=== PATIENT | male | born 1990 | race African-American/Black ===

== ENCOUNTER 2024-01-24 10:29 | Inpatient (IN) | payer OTHER ==
[2024-01-24 10:53] VITALS: BMI 20.6
[2024-01-24] MEDS ORDERED: POLYETHYLENE GLYCOL (HEALTHYLAX) 3350 17 GM PACKET PO PRN (11:18)
[2024-01-24] MEDS ORDERED: ACETAMINOPHEN 325 MG TABLET (FP) PO PRN (11:18)
[2024-01-24] MEDS ORDERED: LOPERAMIDE HCL 2 MG CAPSULE PO PRN (11:18)
[2024-01-24] MEDS ORDERED: BISMUTH SUBSALICYLATE 262 MG/15 ML BTL PO PRN (11:18)
[2024-01-24] MEDS ORDERED: MAG HYDROX/AL HYDROX/SIMETH 30 ML UNIT-DOSE CUP PO PRN (11:18)
[2024-01-24] MEDS ORDERED: NICOTINE POLACRILEX 2 MG GUM BUC PRN (11:18)
[2024-01-24] MEDS ORDERED: ONDANSETRON *ODT* 4 MG TABLET SL PRN (11:18)
[2024-01-24] MEDS ORDERED: BENZOCAINE/MENTHOL (CHLORASEPTIC ) LOZENGE MM PRN (11:18)
[2024-01-24] MEDS ORDERED: IBUPROFEN 600 MG TABLET (FP) PO PRN (11:18)
[2024-01-24] MEDS ORDERED: DICYCLOMINE HCL 10 MG CAPSULE PO PRN (11:18)
[2024-01-24] MEDS ORDERED: MAGNESIUM HYDROX 2400MG/30ML ORAL SUSPENSION 30 ML CUP PO PRN (11:18)
[2024-01-24] MEDS ORDERED: chlordiazePOXIDE HCL 25 MG CAPSULE PO PRN (11:20)
[2024-01-24] MEDS ORDERED: chlordiazePOXIDE HCL 25 MG CAPSULE ONE (12:10)
[2024-01-24] MEDS: chlordiazePOXIDE HCL 25 MG CAPSULE PO SCH (12:13)
[2024-01-24] MEDS: levETIRAcetam 250 MG TABLET PO SCH (13:47)
[2024-01-24] MEDS: BUPRENORPHINE/NALOXONE 8 MG/2 MG FILM PACKET SL SCH (13:47)
[2024-01-24] MEDS: BENZONATATE 200 MG CAPSULE PO PRN (17:17)
[2024-01-24] MEDS: NICOTINE POLACRILEX 2 MG LOZENGE BC PRN (18:06)
[2024-01-24] MEDS: FAMOTIDINE 20 MG TABLET PO SCH (22:15)
[2024-01-24] MEDS: THIAMINE 100 MG TABLET PO SCH (22:15)
[2024-01-24] MEDS: MELATONIN 5 MG TABLETS PO SCH (22:16)
[2024-01-24] MEDS: IBUPROFEN 400 MG TABLET (FP) PO PRN (22:19)
[2024-01-24] MEDS: METHOCARBAMOL 500 MG TABLET PO PRN (22:19)
[2024-01-25] MEDS ORDERED: ESCITALOPRAM OXALATE 10 MG TABLET ONE (09:10)
[2024-01-25] MEDS: ESCITALOPRAM OXALATE 20 MG TABLET PO SCH (09:35)
[2024-01-25] MEDS: hydrOXYzine PAMOATE 25 MG CAPSULE (FP) PO PRN (09:35)
[2024-01-25] MEDS: PRENATAL VITAMINS W/ FOLIC ACID TABLET (FP) PO SCH (09:36)
[2024-01-25 11:13] LABS: HEMOGLOBIN 13.7 GM/dL (11.7-16.9); MCH 29.7 pg (25.7-33.7); MEAN CELL VOLUME 93.1 fl (80-96); MEAN PLT VOLUME 8.6 fl (7.5-11.1); PLATELET COUNT 283 10^3/uL (134-434); RBC 4.61 M/mm3 (4.00-5.60); RDW 14.6 % (11.9-15.9); WHITE BLOOD COUNT 6.5 K/mm3 (4.0-10.0)
[2024-01-25 11:14] LABS: POTASSIUM 4.3 mmol/L (3.5-5.1)
[2024-01-25 11:18] LABS: ALBUMIN 3.5 g/dl (3.4-5.0); BLOOD UREA NITROGEN 13.4 mg/dL (7-18)
[2024-01-25 11:22] LABS: BILIRUBIN,TOTAL 0.2 mg/dL (0.2-1); TOT PROT 6.8 g/dl (6.4-8.2)
[2024-01-25] MEDS: SUVOREXANT 10 MG TABLET PO PRN (22:12)
[2024-01-25] MEDS: guaiFENesin 600 MG TABLET.ER (FP) PO PRN (23:52)
[2024-01-25] MEDS: P-EPHED 60MG/TRIPROLIDI 2.5MG TABLET PO PRN (23:52)
[2024-01-26] MEDS: chlordiazePOXIDE HCL 25 MG CAPSULE PO SCH (05:43)
[2024-01-26 08:40] VITALS: BP 135/85; PULSE 107; RESP 18; TEMP 97.8
[2024-01-26] MEDS ORDERED: ESCITALOPRAM OXALATE 10 MG TABLET ONE (09:41)
[2024-01-27] MEDS ORDERED: chlordiazePOXIDE HCL 10 MG CAPSULE PO PRN
[2024-01-27] MEDS ORDERED: chlordiazePOXIDE HCL 10 MG CAPSULE PO SCH (05:00)
[2024-01-28] MEDS ORDERED: chlordiazePOXIDE HCL 10 MG CAPSULE PO SCH (05:00)
[2024-01-29] MEDS ORDERED: chlordiazePOXIDE HCL 10 MG CAPSULE PO ONE (05:00)
== END 2024-01-26 20:40 | disposition short-term general hospital (02) | DRG 773 ==
LOC: YASAS 10:29 → Y3N 12:10 → Y6N 12:32
PROVIDERS: ADMIT Allergy & Immunology; ATTEND Surgery
PROC: HZ2ZZZZ Detoxification Services for Substance Abuse Treatment (ICD-10-PCS; principal; 2024-01-24)
DX: F10.230 Alcohol dependence with withdrawal, uncomplicated (principal); F11.20 Opioid dependence, uncomplicated; F14.20 Cocaine dependence, uncomplicated; F17.210 Nicotine dependence, cigarettes, uncomplicated; F19.282 Other psychoactive substance dependence with psychoactive substance-induced sleep disorder; F19.280 Other psychoactive substance dependence with psychoactive substance-induced anxiety disorder; F43.10 Post-traumatic stress disorder, unspecified; G40.909 Epilepsy, unspecified, not intractable, without status epilepticus; K21.9 Gastro-esophageal reflux disease without esophagitis; R26.89 Other abnormalities of gait and mobility; Z99.89 Dependence on other enabling machines and devices; Z62.810 Personal history of physical and sexual abuse in childhood
CPT/HCPCS: 0241U-QW; 36415; 70450-TC; 80053; 80305; 80307; 82962; 85027; 86780; 93005; 93010

== ENCOUNTER 2024-01-26 10:42 | Inpatient (IN) | payer OTHER ==
[2024-01-26 10:57] VITALS: BMI 22.6
[2024-01-26] MEDS: ACETAMINOPHEN 1000 MG/100 ML BAG IVPB ONE (11:20)
[2024-01-26] MEDS ORDERED: VANCOMYCIN 1,000 MG in DEXTROSE 5%-WATER - 250 ML IVPB ONE (11:23)
[2024-01-26] MEDS ORDERED: ACETAMINOPHEN INJECTION 100 ML ONE (11:26)
[2024-01-26] MEDS ORDERED: VANCOMYCIN 1 GM PREMIX (F) 1 GM/200 ML BAG ONE (11:27)
[2024-01-26 11:31] LABS: VENOUS BASE EXCESS 2.3 mmol/L (-2-2); VENOUS PCO2 44.3 mmHg (38-52); VENOUS PH 7.409 (7.310-7.410)
[2024-01-26 11:34] LABS: BASO % 0.4 % (0-2.0); EOS % 1.1 % (0-4.5); HEMATOCRIT 41.6 % (35.4-49); HEMOGLOBIN 13.5 GM/dL (11.7-16.9); LYMPH % 12.4 % (8-40); MCH 29.4 pg (25.7-33.7); MCHC 32.3 g/dl (32.0-35.9); MEAN CELL VOLUME 90.8 fl (80-96); MEAN PLT VOLUME 7.7 fl (7.5-11.1); NEUT % 76.1 % (42.8-82.8); PLATELET COUNT 253 10^3/uL (134-434); RBC 4.58 M/mm3 (4.00-5.60); RDW 14.7 % (11.9-15.9); WHITE BLOOD COUNT 15.5 K/mm3 (4.0-10.0)
[2024-01-26] MEDS ORDERED: cefTRIAXone SODIUM 1 GM VIAL ONE (11:36)
[2024-01-26 11:41] LABS: INR 1.13 (0.83-1.09); PROTHROMBIN TIME (PATIENT) 12.7 SEC (9.7-13.0)
[2024-01-26 11:43] LABS: ACTIVATED PTT 32.9 SECONDS (25.2-36.5)
[2024-01-26] MEDS: SODIUM CHLORIDE 1,905 ML IV ONE (11:50)
[2024-01-26] MEDS ORDERED: EPINEPHrine/PF 1 MG/1 ML (1:1,000) AMPULE ONE (11:54)
[2024-01-26] MEDS: CEFTRIAXONE 2 GM-D5W BAG 2 GM/50 ML BAG IVPB ONE (11:56)
[2024-01-26 12:01] LABS: POTASSIUM 3.8 mmol/L (3.5-5.1)
[2024-01-26 12:02] LABS: CALCIUM 8.9 mg/dL (8.5-10.1)
[2024-01-26 12:03] LABS: ALBUMIN 3.4 g/dl (3.4-5.0); BLOOD UREA NITROGEN 7.4 mg/dL (7-18)
[2024-01-26 12:07] LABS: CREATININE 0.7 mg/dL (0.55-1.3)
[2024-01-26 12:08] LABS: BILIRUBIN,TOTAL 0.2 mg/dL (0.2-1)
[2024-01-26] MEDS: VANCOMYCIN 1 GM PREMIX (F) 1 GM/200 ML BAG IVPB ONE (12:35)
[2024-01-26 13:25] LABS: PH,URINE 6.5 (5.0-8.0); URINE APPEARANCE CLOUDY; URINE BILIRUBIN NEGATIVE (NEGATIVE); URINE COLOR YELLOW; URINE GLUCOSE (UA) NEGATIVE (NEGATIVE); URINE KETONE NEGATIVE (NEGATIVE); URINE LEUK ESTERASE NEGATIVE (NEGATIVE); URINE NITRITE NEGATIVE (NEGATIVE); URINE PROTEIN NEGATIVE (NEGATIVE); URINE UROBILINOGEN 0.2 mg/dL (0.2-1.0)
[2024-01-26 14:29] LABS: HIV INTERPRETATION NEGATIVE (NEGATIVE)
[2024-01-26] MEDS: EPINEPHrine 1:1,000 0.3 MG/0.3 ML SYR IM ONE (14:56)
[2024-01-26] MEDS: CIPROFLOXACIN 400 MG/D5W 400 MG/200 ML IVPB IVPB ONE (15:11)
[2024-01-26] MEDS ORDERED: CEFEPIME HCL/D5W 1 GM/50 ML BAG IVPB ONE (17:22)
[2024-01-26] MEDS ORDERED: CEFEPIME HCL/D5W 2 GM/50 ML BAG IVPB ONE (17:24)
[2024-01-26] MEDS: CEFEPIME HCL/D5W 2 GM/50 ML PREMIX IVPB SCH (17:37)
[2024-01-26 18:04] LABS: COCAINE, UR NEGATIVE (NEGATIVE); METHADONE, UR NEGATIVE (NEGATIVE); OPIATES, URI NEGATIVE (NEGATIVE); PHENCYCLIDINE,URINE NEGATIVE (NEGATIVE)
[2024-01-26 18:27] LABS: URINE AMPHETAMINES NEGATIVE (NEGATIVE); URINE BARBITURATES NEGATIVE (NEGATIVE); URINE BENZODIAZEPINES POSITIVE (NEGATIVE)
[2024-01-26 18:44] LABS: ALLENS TEST POSITIVE; ARTERIAL BLD GAS O2 SATURATION 95.7 % (95-98); ARTERIAL BLOOD GAS BASE EXCESS 2.5 mmol/L (-2-2); ARTERIAL BLOOD GAS PO2 83.4 mmHg (80-100); ARTERIAL BLOOD GAS pH 7.362 (7.350-7.450)
[2024-01-26] MEDS: VANCOMYCIN/WATER FOR INJ (PEG) 1,000 MG/200 ML BAG IVPB SCH (21:00)
[2024-01-26] MEDS ORDERED: levETIRAcetam 250 MG TABLET PO SCH (22:00)
[2024-01-26] MEDS ORDERED: DICLOFENAC SODIUM 75 MG TABLET.DR PO SCH (22:00)
[2024-01-26] MEDS ORDERED: PREGABALIN 50 MG CAPSULE PO SCH (22:00)
[2024-01-26] MEDS: PREGABALIN 50 MG CAPSULE PO SCH (22:44)
[2024-01-26] MEDS: FAMOTIDINE 20 MG TABLET PO SCH (22:44)
[2024-01-26] MEDS: DICLOFENAC SODIUM 75 MG TABLET.DR PO SCH (22:45)
[2024-01-26] MEDS: levETIRAcetam 500 MG/5 ML INJECTION VIAL IVPB SCH (23:00)
[2024-01-27] MEDS: BUPRENORPHINE/NALOXONE 4 MG/1 MG FILM PACKET SL ONE (00:36)
[2024-01-27 08:00] LABS: POTASSIUM 4.3 mmol/L (3.5-5.1)
[2024-01-27 08:05] LABS: ALBUMIN 2.9 g/dl (3.4-5.0); BLOOD UREA NITROGEN 10.3 mg/dL (7-18); CALCIUM 8.5 mg/dL (8.5-10.1); MAGNESIUM 1.9 mg/dL (1.8-2.4)
[2024-01-27 08:08] LABS: CREATININE 0.7 mg/dL (0.55-1.3); PHOSPHOROUS 3.2 mg/dL (2.5-4.9)
[2024-01-27 08:09] LABS: BILIRUBIN,TOTAL 0.1 mg/dL (0.2-1); TOT PROT 6.2 g/dl (6.4-8.2)
[2024-01-27 08:15] LABS: HEMATOCRIT 42.2 % (35.4-49); HEMOGLOBIN 13.5 GM/dL (11.7-16.9); MCH 29.5 pg (25.7-33.7); MCHC 31.9 g/dl (32.0-35.9); MEAN CELL VOLUME 92.5 fl (80-96); MEAN PLT VOLUME 8.2 fl (7.5-11.1); RBC 4.56 M/mm3 (4.00-5.60); RDW 14.9 % (11.9-15.9)
[2024-01-27 08:17] LABS: PLATELET COUNT 226 10^3/uL (134-434)
[2024-01-27] MEDS: ENOXAPARIN NA (PORCINE) 40 MG/0.4 ML DISP.SYRIN SQ SCH (09:21)
[2024-01-27] MEDS: BUPRENORPHINE/NALOXONE 8 MG/2 MG FILM PACKET SL SCH (11:28)
[2024-01-27] MEDS: ESCITALOPRAM OXALATE 20 MG TABLET PO SCH (17:10)
[2024-01-27] MEDS: CEFTRIAXONE 2 GM-D5W BAG 2 GM/50 ML BAG IVPB SCH (18:07)
[2024-01-28] MEDS: hydrOXYzine PAMOATE 25 MG CAPSULE (FP) PO PRN (04:26)
[2024-01-28] MEDS ORDERED: LORazepam 2 MG TABLET PO ONE (04:49)
[2024-01-28 06:52] LABS: BASO % 0.4 % (0-2.0); EOS % 8.3 % (0-4.5); HEMATOCRIT 39.4 % (35.4-49); HEMOGLOBIN 12.6 GM/dL (11.7-16.9); LYMPH % 18.8 % (8-40); MCH 29.3 pg (25.7-33.7); MEAN CELL VOLUME 91.5 fl (80-96); MONO % 9.9 % (3.8-10.2); NEUT % 62.6 % (42.8-82.8); PLATELET COUNT 264 10^3/uL (134-434); RBC 4.31 M/mm3 (4.00-5.60); RDW 14.7 % (11.9-15.9); WHITE BLOOD COUNT 8.5 K/mm3 (4.0-10.0)
[2024-01-28 07:09] LABS: POTASSIUM 4.5 mmol/L (3.5-5.1)
[2024-01-28 07:12] LABS: CALCIUM 8.5 mg/dL (8.5-10.1); MAGNESIUM 1.5 mg/dL (1.8-2.4)
[2024-01-28 07:13] LABS: ALBUMIN 2.8 g/dl (3.4-5.0)
[2024-01-28 07:15] LABS: CREATININE 0.6 mg/dL (0.55-1.3)
[2024-01-28 07:16] LABS: PHOSPHOROUS 3.1 mg/dL (2.5-4.9)
[2024-01-28 07:17] LABS: BILIRUBIN,TOTAL 0.2 mg/dL (0.2-1); TOT PROT 6.1 g/dl (6.4-8.2)
[2024-01-28] MEDS: levETIRAcetam 500 MG/5 ML INJECTION VIAL IVPB SCH (10:10)
[2024-01-28] MEDS: MAGNESIUM 2GM/50ML STERILE WATER IVPB IVPB SCH (10:18)
[2024-01-28] MEDS: VANCOMYCIN 1,000 MG in DEXTROSE 5%-WATER - 250 ML IVPB SCH (10:44)
[2024-01-28] MEDS: CEFEPIME HCL 2 GM VIAL (RESTRICTED TO ID) IVPB SCH (10:44)
[2024-01-28] MEDS ORDERED: MAGNESIUM SULF 50% (8.12 MEQ/2 ML-1 GM VIAL) IVPB SCH (16:31)
[2024-01-28] MEDS: levETIRAcetam 500 MG TABLET (FP) PO ONE (23:11)
[2024-01-29 06:09] VITALS: RESP 17
[2024-01-29 08:06] LABS: HEMOGLOBIN 12.4 GM/dL (11.7-16.9); MCHC 32.6 g/dl (32.0-35.9); MEAN CELL VOLUME 92.1 fl (80-96); MEAN PLT VOLUME 8.1 fl (7.5-11.1); PLATELET COUNT 299 10^3/uL (134-434); RBC 4.13 M/mm3 (4.00-5.60); WHITE BLOOD COUNT 5.8 K/mm3 (4.0-10.0)
[2024-01-29 08:38] LABS: POTASSIUM 4.3 mmol/L (3.5-5.1)
[2024-01-29 08:49] LABS: ALBUMIN 2.6 g/dl (3.4-5.0); BLOOD UREA NITROGEN 10.2 mg/dL (7-18); CALCIUM 8.4 mg/dL (8.5-10.1); MAGNESIUM 1.9 mg/dL (1.8-2.4)
[2024-01-29 08:53] LABS: BILIRUBIN,TOTAL 0.2 mg/dL (0.2-1); CREATININE 0.6 mg/dL (0.55-1.3); TOT PROT 5.9 g/dl (6.4-8.2)
[2024-01-29] MEDS: levETIRAcetam 500 MG TABLET (FP) PO SCH (10:39)
[2024-01-29 12:15] VITALS: BP 104/62; PULSE 70; TEMP 97.3
== END 2024-01-29 11:56 | disposition other institution (70) | DRG 720 ==
LOC: JER 10:42 → JERBED 13:25 → J4W 19:25
PROVIDERS: ADMIT Student in an Organized Health Care Education/Training Program; ATTEND Psychiatry & Neurology Pain Medicine
DX: A41.9 Sepsis, unspecified organism (principal); G93.41 Metabolic encephalopathy; G62.9 Polyneuropathy, unspecified; J18.9 Pneumonia, unspecified organism; F10.10 Alcohol abuse, uncomplicated; G40.909 Epilepsy, unspecified, not intractable, without status epilepticus; F14.10 Cocaine abuse, uncomplicated; F17.210 Nicotine dependence, cigarettes, uncomplicated
CPT/HCPCS: 0241U-QW; 36415; 36600; 70450-TC; 71045-TC-FY; 71250-TC; 72125-TC; 80053; 80177; 80307; 81003; 82550; 82803; 83605; 83735; 84100; 84484; 85025; 85027; 85610; 85730; 86803; 86850; 86900; 86901; 87040; 87081; 87086; 87389; 87522; 87899; 93005; 93010; 93306-TC; 99291; J0131

== ENCOUNTER 2024-01-29 12:25 | Inpatient (IN) | payer OTHER ==
[2024-01-29 15:03] VITALS: BMI 22.4
[2024-01-29] MEDS ORDERED: MAG HYDROX/AL HYDROX/SIMETH 30 ML UNIT-DOSE CUP PO PRN (15:35)
[2024-01-29] MEDS ORDERED: hydrOXYzine PAMOATE 25 MG CAPSULE (FP) PO PRN (15:35)
[2024-01-29] MEDS ORDERED: LOPERAMIDE HCL 2 MG CAPSULE PO PRN (15:35)
[2024-01-29] MEDS ORDERED: BENZONATATE 200 MG CAPSULE PO PRN (15:35)
[2024-01-29] MEDS ORDERED: POLYETHYLENE GLYCOL (HEALTHYLAX) 3350 17 GM PACKET PO PRN (15:35)
[2024-01-29] MEDS ORDERED: MAGNESIUM HYDROX 2400MG/30ML ORAL SUSPENSION 30 ML CUP PO PRN (15:35)
[2024-01-29] MEDS ORDERED: guaiFENesin 600 MG TABLET.ER (FP) PO PRN (15:35)
[2024-01-29] MEDS ORDERED: NALOXONE (NARCAN) HCL 4 MG/0.1 ML SPRAY NS PRN (15:35)
[2024-01-29] MEDS ORDERED: BENZOCAINE/MENTHOL (CHLORASEPTIC ) LOZENGE MM PRN (15:35)
[2024-01-29] MEDS ORDERED: ACETAMINOPHEN 325 MG TABLET (FP) PO PRN (15:35)
[2024-01-29] MEDS: PREGABALIN 50 MG CAPSULE PO ONE (20:35)
[2024-01-29] MEDS: BUPRENORPHINE/NALOXONE 8 MG/2 MG FILM PACKET SL SCH (21:28)
[2024-01-29] MEDS: FAMOTIDINE 20 MG TABLET PO SCH (21:28)
[2024-01-29] MEDS: MELATONIN 5 MG TABLETS PO SCH (21:28)
[2024-01-29] MEDS: levETIRAcetam 500 MG TABLET (FP) PO SCH (21:28)
[2024-01-29] MEDS: CEFUROXIME AXETIL 500 MG TABLET PO SCH (21:28)
[2024-01-29] MEDS: THIAMINE 100 MG TABLET PO SCH (21:28)
[2024-01-30] MEDS: PRENATAL VITAMINS W/ FOLIC ACID TABLET (FP) PO SCH (10:37)
[2024-01-30] MEDS: ESCITALOPRAM OXALATE 20 MG TABLET PO SCH (10:38)
[2024-01-30] MEDS ORDERED: NICOTINE POLACRILEX 4 MG LOZENGE BC PRN (17:27)
[2024-01-30] MEDS ORDERED: hydrOXYzine PAMOATE 25 MG CAPSULE (FP) PO PRN (17:29)
[2024-01-30] MEDS: NICOTINE 21 MG/24 HOURS TOPICAL PATCH TD SCH (18:25)
[2024-01-30] MEDS: PREGABALIN 50 MG CAPSULE PO SCH (21:50)
[2024-01-30] MEDS: DICLOFENAC SODIUM 75 MG TABLET.DR PO SCH (22:53)
[2024-01-31] MEDS ORDERED: CALAMINE 8% TOPICAL LOTION 177 ML BOTTLE TP PRN (10:06)
[2024-01-31 16:55] LABS: PH,URINE 7.5 (5.0-8.0); URINE APPEARANCE CLEAR; URINE BILIRUBIN NEGATIVE (NEGATIVE); URINE COLOR YELLOW; URINE GLUCOSE (UA) NEGATIVE (NEGATIVE); URINE KETONE NEGATIVE (NEGATIVE); URINE LEUK ESTERASE NEGATIVE (NEGATIVE); URINE NITRITE NEGATIVE (NEGATIVE); URINE PROTEIN NEGATIVE (NEGATIVE); URINE UROBILINOGEN 0.2 mg/dL (0.2-1.0)
[2024-01-31] MEDS: BACLOFEN 10 MG TABLET (FP) PO SCH (21:32)
[2024-02-03] MEDS: IBUPROFEN 400 MG TABLET (FP) PO PRN (21:53)
[2024-02-04] MEDS: IBUPROFEN 600 MG TABLET (FP) PO PRN (23:02)
[2024-02-05 06:49] VITALS: RESP 16
[2024-02-06] MEDS: MIRTAZAPINE 15 MG TABLET (FP) PO SCH (21:04)
[2024-02-07] MEDS: CEFUROXIME AXETIL 500 MG TABLET PO SCH (11:00)
[2024-02-12 06:10] VITALS: BP 103/66; PULSE 65; TEMP 97.8
[2024-02-12] MEDS ORDERED: NALOXONE (NYS OPIOID OVERDOSE PROGRAM) 4 MG/0.1 ML SPRAY NS PRN (10:00)
== END 2024-02-12 09:50 | disposition home or self-care (01) | DRG 772 ==
LOC: YASAS 12:25 → Y3W 17:34
PROVIDERS: ADMIT Psychiatry & Neurology Pain Medicine; ATTEND Psychiatry & Neurology Pain Medicine
PROC: HZ42ZZZ Group Counseling for Substance Abuse Treatment, Cognitive-Behavioral (ICD-10-PCS; principal; 2024-01-29)
DX: F10.20 Alcohol dependence, uncomplicated (principal); F11.20 Opioid dependence, uncomplicated; F14.20 Cocaine dependence, uncomplicated; F17.210 Nicotine dependence, cigarettes, uncomplicated; F43.10 Post-traumatic stress disorder, unspecified; F19.982 Other psychoactive substance use, unspecified with psychoactive substance-induced sleep disorder; F19.980 Other psychoactive substance use, unspecified with psychoactive substance-induced anxiety disorder; G40.909 Epilepsy, unspecified, not intractable, without status epilepticus
CPT/HCPCS: 80305; 81003; 87811; J0475

== ENCOUNTER 2024-05-22 18:53 | Inpatient (IN) | payer OTHER ==
[2024-05-22 19:38] VITALS: BMI 20.9
[2024-05-22] MEDS ORDERED: POLYETHYLENE GLYCOL (HEALTHYLAX) 3350 17 GM PACKET PO PRN (21:43)
[2024-05-22] MEDS ORDERED: NICOTINE POLACRILEX 2 MG GUM BUC PRN (21:43)
[2024-05-22] MEDS ORDERED: NALOXONE (NARCAN) HCL 4 MG/0.1 ML SPRAY NS PRN (21:43)
[2024-05-22] MEDS ORDERED: BENZONATATE 200 MG CAPSULE PO PRN (21:43)
[2024-05-22] MEDS ORDERED: IBUPROFEN 600 MG TABLET (FP) PO PRN (21:43)
[2024-05-22] MEDS ORDERED: MAG HYDROX/AL HYDROX/SIMETH 30 ML UNIT-DOSE CUP PO PRN (21:43)
[2024-05-22] MEDS ORDERED: BISMUTH SUBSALICYLATE 524 MG/30 ML PO PRN (21:43)
[2024-05-22] MEDS ORDERED: IBUPROFEN 400 MG TABLET (FP) PO PRN (21:43)
[2024-05-22] MEDS ORDERED: BENZOCAINE/MENTHOL (CHLORASEPTIC ) LOZENGE MM PRN (21:43)
[2024-05-22] MEDS ORDERED: guaiFENesin 600 MG TABLET.ER (FP) PO PRN (21:43)
[2024-05-22] MEDS ORDERED: DICYCLOMINE HCL 10 MG CAPSULE PO PRN (21:43)
[2024-05-22] MEDS ORDERED: MAGNESIUM HYDROX 2400MG/30ML ORAL SUSPENSION 30 ML CUP PO PRN (21:43)
[2024-05-22] MEDS ORDERED: methaDONE HCL 10 MG TABLET (FOR DETOX USE ONLY) PO PRN (21:46)
[2024-05-22] MEDS ORDERED: MELATONIN 5 MG TABLETS ONE (22:40)
[2024-05-22] MEDS ORDERED: methaDONE HCL 10 MG TABLET (FOR DETOX USE ONLY) ONE (22:40)
[2024-05-22] MEDS ORDERED: levETIRAcetam 500 MG TABLET (FP) PO ONE (22:40)
[2024-05-22] MEDS: THIAMINE 100 MG TABLET PO SCH (22:43)
[2024-05-22] MEDS: MELATONIN 5 MG TABLETS PO SCH (22:43)
[2024-05-22] MEDS: levETIRAcetam 500 MG TABLET (FP) PO SCH (22:43)
[2024-05-22] MEDS: methaDONE HCL 10 MG TABLET (FOR DETOX USE ONLY) PO ONE (22:43)
[2024-05-23] MEDS ORDERED: ESCITALOPRAM OXALATE 10 MG TABLET ONE (09:38)
[2024-05-23] MEDS ORDERED: FAMOTIDINE 20 MG TABLET PO SCH (10:00)
[2024-05-23] MEDS: PRENATAL VITAMINS W/ FOLIC ACID TABLET (FP) PO SCH (10:16)
[2024-05-23] MEDS: NICOTINE 14 MG/24 HOURS TOPICAL PATCH TD SCH (10:16)
[2024-05-23] MEDS: ESCITALOPRAM OXALATE 20 MG TABLET PO SCH (10:17)
[2024-05-23] MEDS: hydrOXYzine PAMOATE 25 MG CAPSULE (FP) PO PRN (10:25)
[2024-05-23] MEDS: cloNIDine HCL 0.1 MG TABLET PO PRN (10:25)
[2024-05-23] MEDS: LOPERAMIDE HCL 2 MG CAPSULE PO PRN (10:25)
[2024-05-23] MEDS: ONDANSETRON *ODT* 4 MG TABLET SL PRN (10:25)
[2024-05-23] MEDS: DICLOFENAC SODIUM 75 MG TABLET.DR PO SCH (10:50)
[2024-05-23 11:30] LABS: HEMOGLOBIN 13.7 g/dL (13.7-17.5); MCHC 32.6 g/dl (32.3-36.5); MEAN CELL VOLUME 88.2 fl (79.0-92.2); MEAN PLT VOLUME 9.5 fl (9.4-12.4); PLATELET COUNT 337 x10^3/uL (163-337); RDW 13.8 % (12.0-15.6)
[2024-05-23 11:32] LABS: CHLORIDE 98 mmol/L (98-107); POTASSIUM 3.8 mmol/L (3.5-5.1); SODIUM 134 mmol/L (136-145)
[2024-05-23] MEDS: FAMOTIDINE 20 MG TABLET PO SCH (11:35)
[2024-05-23] MEDS: methaDONE HCL 10 MG TABLET (FOR DETOX USE ONLY) PO ONE (11:37)
[2024-05-23 11:45] LABS: CALCIUM 9.2 mg/dL (8.5-10.1)
[2024-05-23 11:46] LABS: ANION GAP 8 mmol/L (4-13); BLOOD UREA NITROGEN 7.5 mg/dL (7-18); CO2 28 mmol/L (21-32); GLUCOSE,RANDOM 94 mg/dL (74-106)
[2024-05-23 11:49] LABS: CREATININE 0.7 mg/dL (0.55-1.3); SGOT/AST 21 U/L (15-37); SGPT/ALT 16 U/L (13-61)
[2024-05-23 11:50] LABS: BILIRUBIN,TOTAL 0.6 mg/dL (0.2-1); TOT PROT 7.2 g/dl (6.4-8.2)
[2024-05-23 11:52] LABS: ALK PHOS 106 U/L (45-117)
[2024-05-23] MEDS ORDERED: methaDONE HCL 10 MG TABLET PO PRN (12:59)
[2024-05-23] MEDS: cloNIDine HCL 0.1 MG TABLET PO SCH (13:28)
[2024-05-23] MEDS: PREGABALIN 50 MG CAPSULE PO SCH ×2 (17:37→18:05)
[2024-05-23] MEDS ORDERED: lamoTRIgine 100 MG TABLET PO SCH (22:00)
[2024-05-23] MEDS: MIRTAZAPINE 15 MG TABLET (FP) PO SCH (22:28)
[2024-05-24] MEDS ORDERED: ESCITALOPRAM OXALATE 10 MG TABLET ONE (09:28)
[2024-05-24] MEDS ORDERED: methaDONE HCL 10 MG TABLET (FOR DETOX USE ONLY) PO ONE (10:00)
[2024-05-24] MEDS: methaDONE HCL 10 MG TABLET PO ONE (16:42)
[2024-05-24 18:27] LABS: PH,URINE 5.5 (5.0-8.0); URINE APPEARANCE CLEAR; URINE BILIRUBIN NEGATIVE (NEGATIVE); URINE COLOR YELLOW; URINE GLUCOSE (UA) NEGATIVE (NEGATIVE); URINE KETONE NEGATIVE (NEGATIVE); URINE LEUK ESTERASE NEGATIVE (NEGATIVE); URINE NITRITE NEGATIVE (NEGATIVE); URINE PROTEIN NEGATIVE (NEGATIVE); URINE UROBILINOGEN 0.2 mg/dL (0.2-1.0)
[2024-05-25] MEDS ORDERED: ESCITALOPRAM OXALATE 10 MG TABLET ONE (09:35)
[2024-05-25] MEDS: methaDONE 40 MG, methaDONE 10 MG PO ONE (09:39)
[2024-05-25 11:14] LABS: ABSOLUTE IMMATURE GRANULOCYTES 0.03 x10^3/uL (0.0-0.031); BASOPHILS # 0.05 x10^3/uL (0.01-0.08); EOSINOPHIL % 3.7 % (0.8-7.0); EOSINOPHILS # 0.34 x10^3/uL (0.04-0.54); HEMATOCRIT 39.5 % (40.1-51.0); HEMOGLOBIN 12.4 g/dL (13.7-17.5); MCHC 31.4 g/dl (32.3-36.5); MEAN CELL VOLUME 90.8 fl (79.0-92.2); MEAN PLT VOLUME 9.9 fl (9.4-12.4); MONOCYTE # 1.04 x10^3/uL (0.30-0.82); MONOCYTE % 11.4 % (5.3-12.2); PLATELET COUNT 295 x10^3/uL (163-337); RDW 13.5 % (12.0-15.6)
[2024-05-25] MEDS: METHOCARBAMOL 500 MG TABLET PO PRN (11:37)
[2024-05-25] MEDS: methaDONE HCL 10 MG TABLET PO ONE (11:37)
[2024-05-25] MEDS: ACETAMINOPHEN 325 MG TABLET (FP) PO PRN (16:37)
[2024-05-25] MEDS: cloNIDine HCL 0.1 MG TABLET PO PRN (16:37)
[2024-05-26] MEDS ORDERED: ESCITALOPRAM OXALATE 10 MG TABLET ONE (09:36)
[2024-05-26] MEDS ORDERED: methaDONE HCL 10 MG TABLET (FOR DETOX USE ONLY) PO ONE (10:00)
[2024-05-26] MEDS ORDERED: LORazepam 2 MG/ML SDV VIAL ONE (19:10)
[2024-05-26] MEDS: LORazepam 2 MG/ML SDV VIAL IM ONE (19:15)
[2024-05-27] MEDS: levETIRAcetam 500 MG TABLET (FP) PO ONE (01:30)
[2024-05-27] MEDS ORDERED: ESCITALOPRAM OXALATE 10 MG TABLET ONE (09:29)
[2024-05-27] MEDS: methaDONE 40 MG, methaDONE 20 MG PO ONE (09:33)
[2024-05-27] MEDS: diazePAM 5 MG TABLET PO PRN (13:27)
[2024-05-27] MEDS: TRIMETHOBENZAMIDE HCL 200MG/2ML INJ IM PRN (16:00)
[2024-05-27] MEDS: levETIRAcetam 500 MG TABLET (FP) PO SCH (23:25)
[2024-05-28] MEDS: MIRTAZAPINE 15 MG TABLET (FP) PO ONE (01:07)
[2024-05-28] MEDS: levETIRAcetam 500 MG TABLET (FP) PO ONE (01:07)
[2024-05-28] MEDS: PREGABALIN 50 MG CAPSULE PO ONE (01:08)
[2024-05-28 06:32] VITALS: RESP 16
[2024-05-28] MEDS ORDERED: methaDONE HCL 40 MG DISPERSABLE TABLET PO ONE (10:00)
[2024-05-28] MEDS: methaDONE 40 MG, methaDONE 10 MG PO ONE (10:42)
[2024-05-28] MEDS ORDERED: ESCITALOPRAM OXALATE 10 MG TABLET ONE (10:42)
[2024-05-28] MEDS: TOPIRAMATE 25 MG TABLET PO SCH (10:55)
[2024-05-28 12:40] VITALS: BP 115/67; PULSE 77; TEMP 97.9
== END 2024-05-28 12:17 | disposition other institution (70) | DRG 773 ==
LOC: YASAS 18:53 → UNDOADMIN 22:35 → Y6N 22:35
PROVIDERS: ADMIT Allergy & Immunology; ATTEND Psychiatry & Neurology Pain Medicine
PROC: HZ2ZZZZ Detoxification Services for Substance Abuse Treatment (ICD-10-PCS; principal; 2024-05-26)
DX: F11.23 Opioid dependence with withdrawal (principal); F10.20 Alcohol dependence, uncomplicated; F14.20 Cocaine dependence, uncomplicated; F17.210 Nicotine dependence, cigarettes, uncomplicated; F25.1 Schizoaffective disorder, depressive type; F43.10 Post-traumatic stress disorder, unspecified; G62.9 Polyneuropathy, unspecified; G40.909 Epilepsy, unspecified, not intractable, without status epilepticus; G47.00 Insomnia, unspecified; Z88.0 Allergy status to penicillin
CPT/HCPCS: 0241U-QW; 36415; 70450-TC; 73610-TC-LT-FY; 73630-TC-LT; 80053; 80177; 80305; 80307; 81003; 82962; 85025; 85027; 86780; 87811; 93005; 93010; Q0162